=== PATIENT | male | born 1960 | race Caucasian/White ===

== ENCOUNTER → 2016-08-26 | Outpatient (CLI) | payer BC, MEDICARE ==
[~2016-08-26] MED LIST: methylPREDNISolone 80 MG/ML (DEPO MEDROL) VIAL IM ONE
== END ==
LOC: PMC 10:16
PROVIDERS: ATTEND Internal Medicine Gastroenterology
PROC: 3E0R33Z Introduction of Anti-inflammatory into Spinal Canal, Percutaneous Approach (ICD-10-PCS; principal; 2016-08-26)
DX: M54.16 Radiculopathy, lumbar region (principal)

== ENCOUNTER 2016-11-03 12:29 | Day surgery (SDC) | payer BC, MEDICARE ==
[~2016-11-03] VITALS: Ht 182.9 cm; Wt 104.0 kg
[2016-11-03] VITALS (9 sets, daily range): BP systolic 152–194; BP diastolic 88–95
[~2016-11-03 12:29] MED LIST changes: +ASPI-860 PO; +ATN25T PO; +BCL10T PO; +DXZS4T PO; +HYDR-3881 PO; +LACTATED RINGERS 1,000 ML IV ONE; +LACTATED RINGERS 1,000 ML IV SCH; +NF-LISIN40 PO; +OXYMETAZOLINE 0.05% NASAL SPRAY (AFRIN) 15 ML BTL ONE; +OXYMETAZOLINE 0.05% NASAL SPRAY (AFRIN) 15 ML BTL SCH; +SODIUM CHLORIDE FLUSH 3 ML SYR IV SCH; +SODIUM CHLORIDE FLUSH 3 ML SYR ONE; -methylPREDNISolone 80 MG/ML (DEPO MEDROL) VIAL IM ONE
--- OUTSIDE RECORDS SUMMARY | 2016-11-03 12:33 | XMS REPORT | Continuity of Care Document ---
Author Author [facility] Organization [facility] Address Unknown Phone Unavailable Care Team Providers Care Meter Repairer Helper Name Role Phone COLEROSE MD PCP [phone] Insurance Providers Payer Name Policy Number Subscriber Name Relationship [facility] [id number] Payton Charles 01 Medicare A And B [id number] Juan Diego Charles 16 Self / Same As Patient Problems Medical Problems Problem Onset Date Status Hip pain 07/22/2013 Active Left axillary hidradenitis Unknown Active Medications Medication Dose Route Sig Days/Qty Instructions Order Date Discontinued Date Status Baclofen 10 Mg ORAL THREE TIMES A DAY 07/22/13 Active Atenolol (Tenormin) 25 Mg ORAL TWICE A DAY 07/22/13 Active Hydrocodone Bit/Acetaminophen 1-2 Tab ORAL Q 4-6 HRS 07/22/13 Active Lisinopril 40 Mg ORAL DAILY 07/22/13 Active Doxazosin Mesylate (Cardura) 4 Mg ORAL DAILY 07/22/13 Active Aspirin 81 Mg ORAL DAILY 07/22/13 Active Social History No social history. Hospital Discharge Instructions No hospital discharge instructions. Plan of Care No plan of care. Functional Status No functional status results. Allergies, Adverse Reactions, Alerts Allergen Type Severity Reaction Status Last Updated No Known Drug Allergies Active 07/22/13 Immunizations No immunization records. Vital Signs Acute Vital Signs Vital Response Date/Time Temperature (Fahrenheit) 97.4 Pulse 69 bpm Respirations 18 Height 6 ft 0 in Weight 213 lb Body Mass Index 28.9 kg/m^2 Results Test Source Date Result Interp. Ref. Range Comments Urine Bacteria July 22, 2013 4:30pm None seen /HPF Urine Bilirubin July 22, 2013 4:30pm Negative Negative Urine Blood July 22, 2013 4:30pm 2+ H Negative Urine Clarity July 22, 2013 4:30pm Clear Urine Collection Type July 22, 2013 4:30pm Clean catch Urine Color July 22, 2013 4:30pm Yellow Urine Glucose (UA) July 22, 2013 4:30pm Negative Negative Urine Ketones July 22, 2013 4:30pm Negative Negative Urine Leukocyte Esterase July 22, 2013 4:30pm Negative Negative Urine Nitrite July 22, 2013 4:30pm Negative Negative Urine Protein July 22, 2013 4:30pm Negative Negative Urine RBC July 22, 2013 4:30pm 5-10 /HPF H Urine Specific [place] July 22, 2013 4:30pm 1.020 1.005-1.030 Urine Squamous Epithelial Cells July 22, 2013 4:30pm 0-2 /LPF Urine Urobilinogen July 22, 2013 4:30pm 0.2 mg/dL 0.2-1.0 Urine WBC July 22, 2013 4:30pm None seen /HPF Urine pH July 22, 2013 4:30pm 7.0 5.0 - 8.0 Volume Urine Centrifuged July 22, 2013 4:30pm 10 ml Urine Culture Urine-Clean Catch July 22, 2013 4:30pm Procedures No known history of procedures.
[2016-11-03] MEDS ORDERED: PSEU120T43 PO (13:03)
[2016-11-03] MEDS ORDERED: HYDR12.56 PO (13:03)
[2016-11-03] MEDS ORDERED: NF-LISIN40 PO (13:03)
[2016-11-03] MEDS ORDERED: ATOR40TA2 PO (13:03)
[2016-11-03] MEDS ORDERED: GBPN300C PO (13:03)
[2016-11-03] MEDS ORDERED: RANI150C4 PO (13:04)
[2016-11-03] MEDS ORDERED: LIDOCAINE/EPINEPHRINE 1% 1:100,000 (XYLOCAINE) 30 ML VIAL INJ ONE (14:10)
[2016-11-03] MEDS ORDERED: LIDOCAINE 4% TOPICAL 4.5 ML SYR ONE (14:10)
[2016-11-03] MEDS ORDERED: OXYMETAZOLINE 0.05% NASAL SPRAY (AFRIN) 15 ML BTL ONE (14:10)
[2016-11-03] MEDS ORDERED: LIDOCAINE 2% (XYLOCAINE) 20 ML VIAL INJ ONE (14:10)
[2016-11-03] MEDS ORDERED: PROPOFOL 20 ML IV ONE ×2 (14:31→15:46)
[2016-11-03] MEDS ORDERED: ALFENTANIL 1,000 MCG/2 ML AMP IV ONE (14:32)
[2016-11-03] MEDS ORDERED: SUCCINYLCHOLINE 20 MG/ML 10 ML VIAL ONE (14:32)
[2016-11-03] MEDS ORDERED: LABETALOL HCL 100 MG/20 ML VIAL IV ONE (15:51)
[2016-11-03] MEDS ORDERED: ePHEDrine SULFATE 50 MG/ML 1 ML AMP ONE (16:08)
[2016-11-03] MEDS ORDERED: IBUPROFEN 200 MG (MOTRIN) TAB PO ONE (16:54)
[2016-11-03] MEDS ORDERED: ACETAMINOPHEN 325 MG TAB (TYLENOL) PO PRN (16:55)
[2016-11-03] MEDS ORDERED: ACETAMINOPHEN/CODEINE 300MG/30 MG (TYLENOL #3) TABLET PO PRN (16:56)
[2016-11-03] MEDS ORDERED: IBUPROFEN 600 MG (MOTRIN) TAB PO PRN (17:00)
--- NOTE | 2016-11-03 17:10 | NUR ---
Patient admitted to room 309 per cart from PACU. He denies the need for any pain medication at this time. Able to answer questions appropriately by shaking his head "yes" or "no." Educated him on the importance of resting his voice as much as possible the next 3 days.
--- NOTE | 2016-11-03 18:15 | NUR ---
Patient is able to sip liquids and take a cup of jello without difficulty. Gave 2 Tylenol #3 tabs for increased throat pain.
--- NOTE | 2016-11-03 19:38 | NUR ---
Pt resting in bed, watching tv. at bedside. VSS. Discussed dismissal plans with pt and .
--- NOTE | 2016-11-03 19:52 | NUR ---
Pt has tolerated liquids and soft foods without nausea. Pt states he is ready to go home. Educated pt and on discharge instructions. including resting voice as much as possible. Card with follow-up appointment given to patient. SL removed; catheter tip intact.
--- NOTE | 2016-11-03 20:00 | NUR ---
Pt dismissed via w/c to home at this time. Accompanied by . All questions answered; encouraged pt to call if he had more.
--- NOTE | 2016-11-04 12:34 | OPERATIVE REPORT ---
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 OPERATIVE PROCEDURE: Microscopic direct laryngoscopy with biopsy of left and right true vocal cord mass. SURGEON: Rickie Mishra M.D. ANESTHESIA: General endotracheal INDICATIONS: This is a 56-year-old male with a history of smoking and hoarseness. 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 OPERATIVE NOTE: Following informed consent the patient was taken to the operating room and placed in the supine position. Satisfactory general endotracheal anesthesia was obtained. His head was placed in a slight sniffing position and then microscopic direct laryngoscopy was performed. Initially the Morgan laryngoscope was used for evaluation of the larynx and suspension laryngoscopy. Photographs were taken with the Morgan laryngoscope, but following this a true anterior commissure laryngoscope was used for evaluation of the anterior commissure. The supraglottic larynx and piriform recesses were normal. The epiglottis and glottis are normal except for anterior commissure area. There is leukoplakia with mild edema of the tissue at the right anterior true vocal cord. This was biopsied with a cupped biopsy forceps and hemostasis was achieved with an Afrin pack. This lesion is basically very small and confined to the anterior right true vocal cord. Next the left true vocal cord was assessed. The lesion appears as a soft tissue mass at the anterior commissure, but actually just superior to the left true vocal cord at the anterior laryngeal ventricle. This was biopsied with cup forceps and scissors and reveals what looks to be a lipoma, or fatty tissue, in this area. Additional biopsies were taken and Afrin was used for hemostasis. The patient was awakened and taken to recovery in good condition.
== END 2016-11-03 20:00 | disposition home or self-care (01) ==
LOC: ASC 12:29 → MED/SURG 17:10 → ASC 20:00
PROVIDERS: ATTEND Otolaryngology
DX: J38.3 Other diseases of vocal cords (principal); J38.7 Other diseases of larynx; I10 Essential (primary) hypertension; F17.210 Nicotine dependence, cigarettes, uncomplicated; Z79.82 Long term (current) use of aspirin
CPT/HCPCS: 31536; 88305; J0330; J2001; J7120